=== PATIENT | male | born 1995 | race Two or more races ===

== ENCOUNTER 2016-05-28 20:23 | Emergency (ER) | payer MEDICAID ==
[2016-05-28] MEDS ORDERED: ACETAMINOPHEN 500 MG TABLET ONE (21:36)
[2016-05-28] MEDS ORDERED: SODIUM CHLORIDE 0.9% 1,000 ML ONE (21:36)
[2016-05-28 21:58] LABS: ABSOLUTE NEUTROPHIL COUNT 7.6 K/mm3 (1.8-7.7); BASO % 0.3 % (0.2-1.0); EOS % 0.3 % (0.9-2.9); HEMATOCRIT 43.4 % (32.0-52.0); HEMOGLOBIN 14.6 gm/l (14.0-18.0); IMM NEUT # 0.1 K/mm3 (0-0.2); IMM NEUT% 0.6 % (0-1); LYMPH # 0.5 (1.0-4.8); LYMPH % 5.9 % (15-45); MEAN CELL VOLUME 88.9 fl (80.0-94.0); MEAN CORPUSCULAR HEMOGLOBIN 29.9 pg (27.0-31.0); MEAN CORPUSCULAR HGB CONC 33.6 g/dl (33.0-37.0); MEAN PLATELET VOLUME 9.7 fl (7.4-10.4); MONO # 0.6 (0.0-0.8); MONO % 7.1 % (4-12); NEUT % 85.8 % (43-75); PLATELET COUNT 130 K/mm3 (130-400); RED CELL DISTRIBUTION WIDTH 11.7 % (11.5-14.5)
[2016-05-28 22:19] LABS: ALB/GLOB RATIO 1.3 (>1.0); BLOOD UREA NITROGEN 12 mg/dL (7-25); BUN/CREATININE RATIO 13 (6-20); CALCIUM 8.9 mg/dL (8.6-10.3)
[2016-05-28 22:21] LABS: ALT/SGPT 61 U/L (7-52)
[2016-05-28] MEDS ORDERED: DIPHENHYDRAMINE HCL 25 MG CAPSULE ONE (23:20)
[2016-05-28 23:28] LABS: SPECIFIC GRAVITY 1.025 (1.001-1.030); URINE BILIRUBIN NEGATIVE (NEGATIVE); URINE BLOOD NEGATIVE (NEGATIVE); URINE GLUCOSE (UA) NEGATIVE (NEGATIVE); URINE LEUKOCYTE ESTERASE NEGATIVE (NEGATIVE); URINE NITRITE NEGATIVE (NEGATIVE); URINE PROTEIN 1+ (NEGATIVE)
[2016-05-28 23:32] LABS: URINE APPEARANCE SL CLOUDY; URINE COLOR DARK YELLOW; URINE UROBILINOGEN 4 mg/dL (0-1 mg/dl)
[2016-05-28 23:43] LABS: URINE BACTERIA 0; URINE EPITHELIAL CELLS FEW /hpf; URINE MUCUS 2+; URINE RBC 0 /hpf; URINE WBC 0-1 /hpf
--- NOTE | 2016-05-29 07:52 | RAD ---
Exam: Two-view chest COMPARISON: None INDICATION: Fever. FINDINGS: PA and lateral views the chest were obtained. Cardiac silhouette is within normal limits. Lungs are well-inflated. There is no focal airspace disease or pleural effusion. 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 Mild dextroconvex curvature of the midthoracic spine is appreciated. IMPRESSION: No radiographic evidence of pneumonia.
== END 2016-05-28 23:51 | disposition home or self-care (01) ==
LOC: ED 20:23
DX: R50.9 Fever, unspecified (principal); R51 Headache
CPT/HCPCS: 83605; 85025; 87040 ×2; 80053; 81001; 71020; 99284 ×2; 96360; 36415; A9270 ×2; J7030